=== PATIENT | female | born 1970 | race Caucasian/White ===

== ENCOUNTER 2016-12-10 15:28 | Emergency (ER) | payer MEDICAID ==
[~2016-12-10] VITALS: Ht 172.7 cm; Wt 50.0 kg
[~2016-12-10 15:28] MED LIST: CIPR500T4 PO; LEVO75TA3 PO
[2016-12-10 15:31] VITALS: BP 177/111; PULSE 88; RESP 16; TEMP 98; O2SAT 98
[2016-12-10 16:18] VITALS: BP 147/93; PULSE 71; RESP 18; TEMP 97.8; O2SAT 98
--- NOTE | 2016-12-10 16:30 | PD ---
HPI Chief Complaint: Psychiatric Symptoms Time Seen by Provider: 16:00 Travel History International Travel<30 days: No Contact w/Intl Traveler<30days: No Traveled to known affect area: No History of Present Illness HPI Patient is a 46-year-old female who presents to emergency room for evaluation of depression and suicidal ideations. Patient presents to the emergency room with her case operator, case operator reports that patient confessed that she has been using drugs, patient was told her that she wanted to if continued to abuse drugs. Reports that if she didn't get help with her drug addiction, she has thoughts of overdosing on drugs. Reports that she uses whatever drugs that she can get a hold of. She used ridalin today. Reports that she drank last night and used cocaine. PFSH Past Medical History Heart Rhythm Problems: Yes Cardiac Catheterization: No Cardiovascular Problems: Yes (CHEST PAIN) High Cholesterol: No Congestive Heart Failure: Yes Diabetes: Yes Diminished Hearing: No Hepatitis: Yes Hypertension: Yes Thyroid Disease: Yes : 1 Miscarriage: 1 Past Surgical History Coronary Artery Bypass Graft: No Gynecologic Surgery: Yes (POLYPS REMOVED FROM CERVIX AND HYSTERCTOMY) Hysterectomy: Yes Family History Family History: Negative Social History Alcohol Use: Yes (SOCIALLY) Tobacco Use: Yes (1 PACK PER 3 days) Substance Use: Yes (hx of CRACK) Allergies-Medications (Allergen,Severity, Reaction): Coded Allergies: No Known Allergies (Unverified , 08/19/16) Reported Meds & Prescriptions Reported Meds & Active Scripts Active Cipro (Ciprofloxacin HCl) 500 Mg Tab 500 Mg PO BID 3 Days Reported Levothyroxine 75 mcg (Levothyroxine Sodium) 75 Mcg Tab 1 Tab PO DAILY Review of Systems General / Constitutional: No: Fever Eyes: No: Visual changes HENT: No: Headaches Cardiovascular: No: Chest Pain or Discomfort Respiratory: No: Shortness of Breath Gastrointestinal: No: Abdominal Pain Genitourinary: No: Dysuria Musculoskeletal: No: Pain Skin: No Rash Neurologic: No: Weakness Psychiatric: Positive: Anxiety, Depression, Suicidal Ideations, Substance Abuse Endocrine: No: Polydipsia Hematologic/Lymphatic: No: Easy Bruising Physical Exam Narrative GENERAL: nad, nontoxic SKIN: Warm and dry. HEAD: Atraumatic. Normocephalic. EYES: Pupils equal and round. No scleral icterus. No injection or drainage. ENT: No nasal bleeding or discharge. Mucous membranes pink and moist. NECK: Trachea midline. No JVD. CARDIOVASCULAR: Regular rate and rhythm. No murmur appreciated. RESPIRATORY: No accessory muscle use. Clear to auscultation. Breath sounds equal bilaterally. GASTROINTESTINAL: Abdomen soft, non-tender, nondistended. Hepatic and splenic margins not palpable. MUSCULOSKELETAL: No obvious deformities. No clubbing. No cyanosis. No edema. NEUROLOGICAL: Awake and alert. No obvious cranial nerve deficits. Motor grossly within normal limits. Normal speech. PSYCHIATRIC: Patient anxious on exam, patient with suicidal ideations Data Data Last Documented VS Vital Signs Date Time Temp Pulse Resp B/P Pulse Ox O2 Delivery O2 Flow Rate FiO2 12/10/16 15:31 98.0 88 16 177/111 98 Room Air Orders Complete Blood Count With Diff (12/10/16 16:15) Comprehensive Metabolic Panel (12/10/16 16:15) Drug Screen, Random Urine (12/10/16 16:15) Alcohol (Ethanol) (12/10/16 16:15) Salicylates (Aspirin) (12/10/16 16:15) Tylenol (Acetaminophen) (12/10/16 16:15) Psych Screen (12/10/16 16:15) MDM Medical Decision Making Medical Screen Exam Complete: Yes Emergency Medical Condition: Yes Interpretation(s) Vital Signs Date Time Temp Pulse Resp B/P Pulse Ox O2 Delivery O2 Flow Rate FiO2 12/10/16 15:31 98.0 88 16 177/111 98 Room Air Differential Diagnosis Suicidal ideations, drug abuse, electrolyte abnormality, alcohol abuse Narrative Course Patient is a 46-year-old female who presents to emergency room with complaint of suicidal ideations. Patient reports that she is addicted to drugs and reports that if she can't get clean, she has plans on overdosing to commit suicide. pt reports that he did use some drugs today - reports that she called her case operator and told her the suicidal thoughts. psychiatric medical clearance labs ordered once medically cleared, will have pt seen by psych Lilliam Zepeda DO Dec 10, 2016 16:30
[2016-12-10 16:34] VITALS: BP 147/93; PULSE 66; RESP 18; TEMP 97.9; O2SAT 97
[2016-12-10] MEDS ORDERED: ONDANSETRON HCL 4 MG/2 ML VIAL IV PUSH ONE (17:00)
[2016-12-10] MEDS ORDERED: LORazepam 2 MG/ML VIAL IV PUSH ONE (17:00)
[2016-12-10 17:05] LABS: AUTOMATED NEUTROPHIL # 4.8 TH/MM3 (1.8-7.7); BASOPHIL # 0.1 TH/MM3 (0-0.2); BASOPHIL % 0.8 % (0.0-2.0); EOSINOPHIL # 0.3 TH/MM3 (0-0.4); EOSINOPHIL % 3.4 % (0.0-4.0); HEMATOCRIT 46.6 % (35.0-46.0); HEMO FLAGS DIFF FINAL; LYMPHOCYTE # 2.2 TH/MM3 (1.0-4.8); MEAN CELL VOLUME 84.8 FL (80.0-100.0); MEAN CORPUSCULAR HGB CONC 33.1 % (32.0-36.0); MONO % 6.9 % (0.0-8.0); NEUT % 60.9 % (16.0-70.0); PLATELET COUNT 172 TH/MM3 (150-450); RED CELL DISTRIBUTION WIDTH 13.3 % (11.6-17.2); WHITE BLOOD COUNT 7.9 TH/MM3 (4.0-11.0)
[2016-12-10 17:27] LABS: ALT (GPT) 38 U/L (10-53); ANION GAP 7 MEQ/L (5-15); AST (GOT) 32 U/L (15-37); BICARBONATE 29.4 MEQ/L (21.0-32.0); BLOOD UREA NITROGEN 14 MG/DL (7-18); CHLORIDE 103 MEQ/L (98-107); GLOMERULAR FILTRATION RATE 52 ML/MIN (>89); POTASSIUM 4.7 MEQ/L (3.5-5.1); SODIUM (NA) 139 MEQ/L (136-145)
[2016-12-10 17:28] LABS: ALKALINE PHOSPHATASE 152 U/L (45-117); TOTAL BILIRUBIN ADULT 0.4 MG/DL (0.2-1.0)
[2016-12-10 17:32] LABS: AMPHETAMINE, URINE POS (NEG); BARBITURATES, URINE NEG (NEG); COCAINE, URINE POS (NEG)
[2016-12-10 17:43] LABS: ACETAMINOPHEN LESS THAN 2.0 MCG/ML (10.0-30.0)
[2016-12-10] MEDS ORDERED: NICOTINE 21 MG/24 HR PATCH TD ONE (18:00)
[2016-12-10 19:24] VITALS: BP 152/89; PULSE 77; RESP 18; O2SAT 98
[2016-12-10 20:10] VITALS: BP 139/96; PULSE 84; RESP 18; TEMP 98.3; O2SAT 98
[2016-12-10] MEDS ORDERED: diphenhydrAMINE HCL 50 MG CAP PO PRN (21:30)
[2016-12-10] MEDS ORDERED: OLANZapine 5 MG TAB PO ONE (21:30)
[2016-12-10 22:20] LABS: BACTERIA, URINE MOD /hpf; BLOOD, URINE SMALL (NEG); COMMENT (UR) CULTURE INDICATED; CULTURE IF INDICATED CULTURE INDICATED; GLUCOSE,URINE NEG (NEG); KETONE, URINE NEG (NEG); MUCUS URINE FEW /lpf (OCC); SQUAMOUS EPITHELIAL CELL URINE 5 /hpf (0-5); URINE COLOR YELLOW (YELLW/STRAW)
[2016-12-10 22:21] LABS: NITRITE,URINE POS (NEG)
[2016-12-10] MEDS ORDERED: GABA300C5 PO (23:03)
[2016-12-10] MEDS ORDERED: LEVO75TA3 PO ×2 (23:05→23:07)
[2016-12-10] MEDS ORDERED: BACT800T5 PO ×2 (23:05→23:07)
[2016-12-10] MEDS ORDERED: SULFAMETHOXAZOLE-TRIMETHOPRIM DS 800-160 MG TAB PO ONE (23:15)
[2016-12-10] MEDS ORDERED: LEVOTHYROXINE SODIUM 75 MCG TAB PO ONE (23:15)
--- NOTE | 2016-12-10 23:20 | PD ---
Physical Exam Time Seen by Provider: 23:08 Data Data Last Documented VS Vital Signs Date Time Temp Pulse Resp B/P Pulse Ox O2 Delivery O2 Flow Rate FiO2 12/10/16 20:10 98.3 84 18 139/96 98 Room Air Orders Complete Blood Count With Diff (12/10/16 16:15) Comprehensive Metabolic Panel (12/10/16 16:15) Drug Screen, Random Urine (12/10/16 16:15) Alcohol (Ethanol) (12/10/16 16:15) Salicylates (Aspirin) (12/10/16 16:15) Tylenol (Acetaminophen) (12/10/16 16:15) Psych Screen (12/10/16 16:15) Ondansetron Inj (Zofran Inj) (12/10/16 17:00) Lorazepam Inj (Ativan Inj) (12/10/16 17:00) Nicotine 21 Mg Patch.24 Hr (Habitrol 21 (12/10/16 18:00) Urinalysis - C+S If Indicated (12/10/16 20:04) Olanzapine (Zyprexa) (12/10/16 21:30) Diphenhydramine (Benadryl) (12/10/16 21:30) Thyroid Stimulating Hormone (12/10/16 22:13) Urine Culture (12/10/16 17:00) Labs Laboratory Tests Test 12/10/16 12/10/16 16:22 17:00 White Blood Count 7.9 TH/MM3 Red Blood Count 5.50 MIL/MM3 Hemoglobin 15.4 GM/DL Hematocrit 46.6 % Mean Corpuscular Volume 84.8 FL Mean Corpuscular Hemoglobin 28.0 PG Mean Corpuscular Hemoglobin 33.1 % Concent Red Cell Distribution Width 13.3 % Platelet Count 172 TH/MM3 Mean Platelet Volume 10.2 FL Neutrophils (%) (Auto) 60.9 % Lymphocytes (%) (Auto) 28.0 % Monocytes (%) (Auto) 6.9 % Eosinophils (%) (Auto) 3.4 % Basophils (%) (Auto) 0.8 % Neutrophils # (Auto) 4.8 TH/MM3 Lymphocytes # (Auto) 2.2 TH/MM3 Monocytes # (Auto) 0.5 TH/MM3 Eosinophils # (Auto) 0.3 TH/MM3 Basophils # (Auto) 0.1 TH/MM3 CBC Comment DIFF FINAL Differential Comment Sodium Level 139 MEQ/L Potassium Level 4.7 MEQ/L Chloride Level 103 MEQ/L Carbon Dioxide Level 29.4 MEQ/L Anion Gap 7 MEQ/L Blood Urea Nitrogen 14 MG/DL Creatinine 1.14 MG/DL Estimat Glomerular Filtration 52 ML/MIN Rate Random Glucose 78 MG/DL Calcium Level 9.5 MG/DL Total Bilirubin 0.4 MG/DL Aspartate Amino Transf 32 U/L (AST/SGOT) Alanine Aminotransferase 38 U/L (ALT/SGPT) Alkaline Phosphatase 152 U/L Total Protein 8.3 GM/DL Albumin 4.0 GM/DL Thyroid Stimulating Hormone 34.400 uIU/ML 3rd Gen Salicylates Level 3.9 MG/DL Acetaminophen Level LESS THAN 2.0 MCG/ML Ethyl Alcohol Level LESS THAN 3 MG/DL Urine Color YELLOW Urine Turbidity HAZY Urine pH 6.0 Urine Specific [place] 1.018 Urine Protein 30 mg/dL Urine Glucose (UA) NEG mg/dL Urine Ketones NEG mg/dL Urine Occult Blood SMALL Urine Nitrite POS Urine Bilirubin NEG Urine Urobilinogen LESS THAN 2.0 MG/DL Urine Leukocyte Esterase LARGE Urine RBC 6 /hpf Urine WBC /hpf Urine WBC Clumps OCC Urine Squamous Epithelial 5 /hpf Cells Urine Bacteria MOD /hpf Urine Mucus FEW /lpf Microscopic Urinalysis Comment CULTURE INDICATED Urine Opiates Screen NEG Urine Barbiturates Screen NEG Urine Amphetamines Screen POS Urine Benzodiazepines Screen NEG Urine Cocaine Screen POS Urine Cannabinoids Screen NEG MDM Medical Record Reviewed: Yes Supervised Visit with DEDE: No Narrative Course I have been asked by the psychiatric nurse to follow-up in this patient's urinalysis and TSH results. This patient was previously medically cleared by Dr. Zepeda several hours ago. Later on in the evening the psychiatric nurse practitioner ordered a urinalysis and a TSH level on this patient. The patient has been having some urinary pressure and hesitancy for the past few days. She has also been out of her levothyroxine 75 g for the past 2 weeks. Her urinalysis reveals positive nitrites, small blood, large leukocytes, moderate bacteria certainly consistent with a urinary tract infection given her symptoms. She is not septic and there is no evidence for pyelonephritis. Therefore the patient will be treated with Bactrim every 12 hours. I been told that this patient is being transferred to [facility] for further psychiatric evaluation and therefore if so she will have to be given antibiotics as there by the physician at that facility. Otherwise this patient is being given a prescription for Bactrim for 7 days in case she is discharged in the next one or 2 days. In addition this patient's TSH is 34.4 consistent with her history of hypothyroidism and medication noncompliance. There is no evidence for myxedema coma and the patient is currently very conversive and interactive, currently staining in her room, somewhat anxious. This patient is being given a dose of her levothyroxine here and will require levothyroxin if she is transferred to [facility] and this should be ordered by the physician at [facility]. Otherwise this patient is being given a 30 day supply refill prescription of her levothyroxine K she is discharged in the next few days. I discussed these recommendations with the patient in the psychiatric nurse. She is stable. Diagnosis Primary Impression: Urinary tract infection Qualified Code: N30.01 - Acute cystitis with hematuria Additional Impression: Hypothyroidism Qualified Code: E03.9 - Hypothyroidism, unspecified type Scripts Sulfamethoxazole-Trimethoprim (Bactrim DS)800-160 Mg Tab1 Tab PO BID #14 TAB Ref 0 Prov:Lilliam Zepeda DO 12/10/16 Levothyroxine 75 Mcg Tab75 Mcg PO DAILY #30 TAB Ref 0 Prov:Lilliam Zepeda DO 12/10/16 Walter Gonzalez Dec 10, 2016 23:20
[2016-12-11 02:22] VITALS: BP 127/70; PULSE 70; RESP 18; O2SAT 98
== END 2016-12-11 03:34 ==
LOC: NEPE 15:28 → NEPJ 12-11 03:34
DX: N30.01 Acute cystitis with hematuria (principal); N39.0 Urinary tract infection, site not specified; E03.9 Hypothyroidism, unspecified; R45.851 Suicidal ideations; E11.9 Type 2 diabetes mellitus without complications; I50.9 Heart failure, unspecified; I10 Essential (primary) hypertension; F17.210 Nicotine dependence, cigarettes, uncomplicated; F14.220 Cocaine dependence with intoxication, uncomplicated
CPT/HCPCS: 80053; 80307; 80329; 81001; 84443; 85025; 87077; 87086; 87186; 96374; 96375; 99284; J2060; J2405; 80320; G0480